=== PATIENT | female | born 1950 | race Caucasian/White ===

== ENCOUNTER 2018-07-22 11:07 | Outpatient (CLI) | payer MEDICARE ==
[~2018-07-22 11:07] MED LIST: ISOVUE-370 76%-LOCM 1 ML ONE
--- NOTE | 2018-07-22 15:12 | CT ---
CT ABDOMEN AND PELVIS WITH IV AND ORAL CONTRAST: HISTORY: Right lower quadrant pain. FINDINGS: No comparison. Mild scarring at the lung bases. Gallbladder is absent with associated distention of the biliary system. Small cysts within the liver. A heterogeneous and enhancing well circumscribed left adrenal mass measures up to 3.0 x 2[address] diameters. Tiny cysts of the kidneys. Postoperative changes right lower quadrant anterior abdomi nal wall. Scattered diverticula arise from the colon without adjacent inflammation. Pelvis is parti ally obscured by right hip prosthesis with spray artifact. Postoperative changes lumbar spine. IMPRESSION: 1. No inflammatory process or other cause for abdominal pain is apparent. 2. Left adrenal mass is well circumscribed and measures up to 3.0 cm. Because of its size, further evaluation is warranted. PET exam is not approved by Medicare for an adrenal mass in this case. Sin ce the main concern for an adrenal mass would be a metastatic focus from lung cancer, please consider CT of the chest to evaluate for a lung mass that could be the source of a metastasis to the adrenal gland. At the time of that exam, please perform CT abdomen noncontrast, then a CT chest with contrast to radha luate the adrenal gland without IV contrast enhancement, and then to fully evaluate the chest. 3. Diverticulosis. No evidence of diverticulitis. POS: [facility]
== END 2018-07-22 11:08 | disposition home or self-care (01) ==
LOC: BICCT 11:07
PROVIDERS: ATTEND Family Medicine
DX: R10.31 Right lower quadrant pain (principal); E27.8 Other specified disorders of adrenal gland; R91.8 Other nonspecific abnormal finding of lung field; K57.90 Diverticulosis of intestine, part unspecified, without perforation or abscess without bleeding
CPT/HCPCS: 74177; 82565; Q9966

== ENCOUNTER 2018-08-04 14:32 | Outpatient (CLI) | payer MEDICARE ==
[~2018-08-04 14:32] MED LIST changes: -ISOVUE-370 76%-LOCM 1 ML ONE; +Iopamidol 370 76% 100 ML VIAL ONE
--- NOTE | 2018-08-04 16:17 | CT ---
CT CHEST WITH CONTRAST: HISTORY: Adrenal mass seen on prior CT. Evaluate for evidence for metastatic disease from the chest. COMPARISON: None. TECHNIQUE: Multiple contiguous axial images were obtained in a CT of the chest with contrast. Sagittal and erika nal reformats were performed. FINDINGS: No pulmonary masses or nodules are seen in the lungs. No pneumothorax or pleural effusion is seen. No focal infiltrates are seen in the lungs. The heart is normal in size without focal cardiac abnormality. No hilar or mediastinal lymphadenopat hy is seen. Degenerative changes are seen in the spine. The visualized chest wall soft tissues are unremarkable. Please see dedicated abdominal CT for findings below the diaphragm. IMPRESSION: No evidence of significant intrathoracic abnormality. POS: [facility]
--- NOTE | 2018-08-04 16:21 | CT ---
CT ABDOMEN WITHOUT CONTRAST: HISTORY: Adrenal mass seen on prior CT. Please evaluate further. COMPARISON: 07/22/2018 TECHNIQUE: Multiple contiguous axial images were obtained in a CT of the abdomen without contrast. Coronal refo rmats were performed. FINDINGS: There is a 2.6 cm mass in the left adrenal gland with a mean Hounsfield unit value of 45 on this nonc ontrast examination. Nonenhancing hypodensities in the liver likely represent cysts. The gallbladde r has been removed. The right kidney, right adrenal gland, left kidney, spleen, and pancreas are unr emarkable, although evaluation is limited on this noncontrast examination. The visualized large and small bowel are unremarkable. No abdominal adenopathy is seen. There is a small hiatal hernia. Degenerative changes and post surgical changes are seen in the spine. Please see dedicated chest CT for findings above the diaphragm. The patient has wire sutures in the right upper quadrant of the ab domen, likely from prior open cholecystectomy. IMPRESSION: 1. Nonspecific left adrenal mass. This could represent a lipid-poor adrenal adenoma or metastatic d isease. An adrenal mass protocol CT of the abdomen should have been performed to completely characte rize this mass and evaluate for washout. 2. Hiatal hernia. 3. Hepatic cysts. POS: [facility]
== END 2018-08-04 14:33 | disposition home or self-care (01) ==
LOC: BICCT 14:32
PROVIDERS: ATTEND Family Medicine
DX: E27.9 Disorder of adrenal gland, unspecified (principal); K44.9 Diaphragmatic hernia without obstruction or gangrene; K76.89 Other specified diseases of liver
CPT/HCPCS: 71260; 74150; Q9967

== ENCOUNTER 2019-02-07 11:28 | Outpatient (CLI) | payer MEDICARE ==
--- NOTE | 2019-02-07 14:10 | CT ---
Exam: ABDOMEN CT WITH AND WITHOUT CONTRAST: HISTORY: Follow-up adrenal mass. COMPARISON: 08/04/2018. TECHNIQUE: Abdomen CT is performed with and without IV contrast following adrenal mass protocol. FINDINGS: Dependent atelectatic changes in the lung bases. Normal heart size. No significant pericardial fluid. 1 cm hypodensity in the left hepatic lobe, too small to characterize. 2.0 x 1.4 cm hypodensity in the left hepatic lobe with an attenuation coefficient of 10 Hounsfield units, compatible with a cyst. No enhancing masses in the liver, spleen, pancreas or right adrenal gland. Symmetric enhancement the kidneys. No obstructive uropathy. Subcentimeter hypodensities in the left and right renal cortex are too small to characterize. No mesenteric mass, lymphadenopathy, free air or free fluid. Limited evaluation of the alimentary canal by the lack of contrast. No evidence of bowel obstruction. No lytic or blastic lesions in the visualized osseous structures. Lumbar fusion hardware is noted Left adrenal gland: Noncontrast attenuation coefficient of 36.8 Hounsfield units, arterial phase imaging attenuation coef ficient of 0.8 Hounsfield units, delayed imaging attenuation coefficient of 60.6 Hounsfield units.. Absolute washout is 20.7%. Findings are indeterminate. Absolute washout is 9%. Findings are indeterminate. IMPRESSION: 1. Indeterminate left adrenal lesion. 3 month follow-up CT is recommended. Conversely, a follow-up [facility] MRI can be performed in 3 months. Transcribed Date/Time: 02/07/2019 2:47 PM
== END 2019-02-07 11:29 | disposition home or self-care (01) ==
LOC: BICCT 11:28
PROVIDERS: ATTEND Urology
DX: E27.9 Disorder of adrenal gland, unspecified (principal)
CPT/HCPCS: 74170; 82565

== ENCOUNTER 2019-05-13 09:07 | Outpatient (CLI) | payer MEDICARE ==
[2019-05-13] MEDS ORDERED: Magnevist 469MG/ML 20 ML VIAL ONE (11:56)
--- NOTE | 2019-05-13 12:23 | MRI ---
MRI OF THE ABDOMEN WITH AND WITHOUT IV CONTRAST: INDICATION: Left adrenal mass. COMPARISON: Prior CT of the abdomen with and without contrast dated 02/07/[address] of the abdomen d ated 08/04/2018. TECHNIQUE: Multiplanar, multisequence MR images were obtained of the abdomen with and without contrast. The pat ient received 20 cc of MultiHance. FINDINGS: Corresponding to the patient's known left adrenal mass is a predominantly moderate T2 hyperintense, h eterogeneous but predominantly hypointense T1 signal mass lesion within the left adrenal gland. The lesion measures 3.2 x 2.4 cm. The lesion demonstrates some heterogeneous but predominantly low signa l intensity on the in and out of phase images. On the fat saturation images, there is near complete loss of internal signal with a mild peripheral hyperintense rim. There is heterogeneous and progress junior enhancement of the lesion with the postcontrast series. A small persistent focus of intralesiona l macroscopic fat remains on image 4012 of series 9. This is also seen on the CT evaluation performe d earlier on 02/07/2019. There are multiple hepatic cysts present. The right adrenal gland, pancreas, and spleen appear withi n normal limits. No free fluid is evident. No enlarged lymph node is demonstrated. There is modera te intrahepatic and extrahepatic biliary ductal dilatation likely related to patient's post cholecyst ectomy state. Bone marrow signal intensity appears within normal limits. There are small bilateral renal cysts. IMPRESSION: 1. The left adrenal mass lesion contains macroscopic fat and internal loss of signal with fat satura tion is consistent with a left adrenal myelolipoma. 2. Hepatic and renal cysts. 3. Cholecystectomy. POS: [facility]
== END 2019-05-13 09:08 | disposition home or self-care (01) ==
LOC: BICMRI 09:07
PROVIDERS: ATTEND Urology
DX: E27.8 Other specified disorders of adrenal gland (principal); K76.89 Other specified diseases of liver; N28.1 Cyst of kidney, acquired; Z90.49 Acquired absence of other specified parts of digestive tract
CPT/HCPCS: 74183; 82565; A9579

== ENCOUNTER 2019-06-24 13:25 | Outpatient (CLI) | payer MEDICARE ==
--- NOTE | 2019-06-24 14:20 | RAD ---
Lumbar spine 4 views HISTORY: Low back pain. FINDINGS: There are 5 lumbar type vertebrae. Prominent leftward convex rotatory scoliotic curvature o n the frontal view. Bilateral pedicle screws and vertical rods at the L4-5-S1 levels. No lucency around the hardware. Metallic markers associated with interbody fusion material at the L4-5 level wit hin the confines of the disc space. Other pedicles are intact. Vertebral body heights are maintained. Disc space narrowing and discogenic endplate changes most pron ounced at the L2-3 level. Gas disc phenomenon at the T12-L1, L1-2, and L2-3 levels. There is minimal degenerative retrolisthesis at the L2-3 level that does not change upon flexion or e xtension. The L3-4 level, there is disc space narrowing. 0.8 cm spondylolisthesis on the neutral view increases to 0.9 cm upon flexion and reduces to 0.7 cm upon extension. IMPRESSION: Postoperative changes and prominent degenerative changes of the lumbar spine as detailed above, including mild translational motion at the spondylolisthesis at the L3-4 level.
--- NOTE | 2019-06-24 15:43 | MRI ---
MRI Lumbar Spine WO Con History: M 47.816 lumbar spondylosis Comparison: Lumbar spine radiographs same day Findings: The aortic contour is nonaneurysmal. No retroperitoneal periaortic adenopathy. No hydronephrosis. Abnormal mass left adrenal gland. Conus medullaris terminates at the superior endplate of L2. No marrow infiltrative process. Posterior spinal fusion hardware L4-S1 with laminectomy change. Levels are as follows: L1/L2: Moderate degenerative disc space height loss posteriorly. Broad-based posterior disc bulge. Mo derate bilateral neural foraminal narrowing. L2/L3: Moderate degenerative disc space height loss. Circumferential disc bulge greatest in the left lateral recess and subforaminal zone. Spinal canal is narrowed to approximately 8 mm. Moderate hypertrophic facet arthropathy. Moderate to severe left and moderate right neural foraminal narrowing with abutment of the left exiting nerve root. L3/L4: Broad-based posterior disc osteophyte complex. Moderate hypertrophic facet arthropathy. Facet arthropathy primarily continues to be a moderate to severe bilateral neural foraminal narrowing with abutment of the exiting nerve roots. Spinal canal measures approximately 7 mm. L4/L5: Prior sternotomy change. No neural foraminal or spinal canal narrowing. L5/S1: Complete degenerative disc space height loss. Circumferential osteophyte causes moderate bilat eral neural foraminal narrowing with abutment of the exiting and traversing nerve roots. Impression: 1. Multiple spondylosis as described with the root abutment. 2. Asymmetric atrophy of the right psoas muscle likely neurogenic in nature. 3. Symmetric bilateral posterior paraspinal muscle atrophy at L3-L5.
== END 2019-06-24 13:26 | disposition home or self-care (01) ==
LOC: BICMRI 13:25
PROVIDERS: ATTEND Nurse Practitioner Family
DX: M47.816 Spondylosis without myelopathy or radiculopathy, lumbar region (principal); M43.16 Spondylolisthesis, lumbar region; G12.9 Spinal muscular atrophy, unspecified
CPT/HCPCS: 72110; 72148

== ENCOUNTER 2019-07-27 11:11 | Outpatient (CLI) | payer MEDICARE ==
--- NOTE | 2019-08-16 14:19 | MMO ---
Bilateral MAMMO Bilat Screen [facility]. CLINICAL HISTORY: Patient is 69 years old and is seen for screening. VIEWS: The views performed were: bilateral craniocaudal with tomosynthesis and bilateral mediolateral oblique with tomosynthesis. FILMS COMPARED: The present examination has been compared to prior imaging studies performed at [facility] on 04/05/2014, 04/18/2015, 04/21/2016 and 04/23/2017. This study has been interpreted with the assistance of computer-aided detection. MAMMOGRAM FINDINGS: There are scattered fibroglandular densities. There are stable benign appearing calcifications seen in both breasts. There are no suspicious masses, suspicious calcifications, or new areas of architectural distortion. IMPRESSION: THERE IS NO MAMMOGRAPHIC EVIDENCE OF MALIGNANCY. A ROUTINE FOLLOW-UP MAMMOGRAM IN 1 YEAR IS RECOMMENDED. THE RESULTS OF THIS EXAM WERE SENT TO THE PATIENT. ACR BI-RADS Category 2 - Benign finding MAMMOGRAPHY NOTE: 1. A negative mammogram report should not delay a biopsy if a dominant of clinically suspicious mass is present. 2. Approximately 10% to 15% of breast cancers are not detected by mammography. 3. Adenosis and dense breasts may obscure an underlying neoplasm. Reported by: JEFF PERDUE MD Electonically Signed: [id number]
== END 2019-07-27 11:12 | disposition home or self-care (01) ==
LOC: BICMAMMO 11:11
PROVIDERS: ATTEND Family Medicine
DX: Z12.31 Encounter for screening mammogram for malignant neoplasm of breast (principal)
CPT/HCPCS: 77063; 77067

== ENCOUNTER 2019-09-16 09:53 | Outpatient (CLI) | payer MEDICARE ==
--- NOTE | 2019-09-16 13:56 | MRI ---
MRI BRAIN AND ORBITS WITH AND WITHOUT CONTRAST: DATE: 09/16/2019. 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 TECHNIQUE: The echo vascular technologist note: spoke to Dr. Barnes's office and Erin said to do routine orbit exam. The radiologist was not consulted prior to the exam for protocol. MRI brain and orbits protocol was performed, pre- and post-IV injection of 19 mL of MultiHance Gadoli nium-based contrast agent. Dr. Yeager called Dr. Barnes's office, and is awaiting Dr. Barnes's return phone call. FINDINGS: There are a few scattered punctate foci of T2 hyperintensity in the bilateral cerebral white matter, consistent with very mild chronic ischemic white matter changes, less than typically seen for this ag e group. There is diffuse age-appropriate brain parenchymal volume loss of the cerebrum. There is a greater degree of parenchymal volume loss of the bilateral cerebellar hemispheres. No restricted di ffusion to indicate any acute infarction. There is no evidence of infarction of any age. No obstruc tive hydrocephalus, mass effect, midline shift, extraaxial fluid collection, mass, or abnormal intraa xial enhancement. Bilateral cavernous sinuses are normal. No suprasellar mass or compression of the optic chiasm. No abnormal signal or abnormal enhancement of optic nerves. Orbital apices are clear. Extraocular musc les are symmetrical in size bilaterally. No infiltrate or mass within the orbits. No evidence of in traaxial acute hemorrhage. IMPRESSION: 1. Mild to moderate cerebellar atrophy. 2. Cerebrum is within normal limits for age. 3. Please note that for third nerve palsy, the general recommendation is a noncontrast MRA of the he ad (plus 3D CISS or 3D FIESTA equivalent), or contrast-enhanced CT angiogram of the head; in addition to standard brain MRI, in order to rule out a posterior communicating artery aneurysm impinging on t he oculomotor nerve. CODE T POS: ELISA
== END 2019-09-16 09:54 | disposition home or self-care (01) ==
LOC: BICMRI 09:53
DX: H49.02 Third [oculomotor] nerve palsy, left eye (principal); G31.9 Degenerative disease of nervous system, unspecified
CPT/HCPCS: 70553; 82565

== ENCOUNTER 2020-05-14 11:56 | Outpatient (CLI) | payer MEDICARE ==
[2020-05-14] MEDS ORDERED: Magnevist 469MG/ML 20 ML VIAL ONE (12:34)
[2020-05-14 13:05] LABS: Estimated GFR-MDRD - POC Greater than 90
--- NOTE | 2020-05-14 15:32 | MRI ---
MRI OF THE ABDOMEN WITHOUT AND WITH CONTRAST: COMPARISON: MRI of 05/13/2019, CT abdomen 02/07/2019, 07/22/2018. HISTORY: Left adrenal mass seen on prior imaging. Followup exam. TECHNIQUE: Multiplanar, multisequence MR images were obtained of the abdomen without and with IV contrast. FINDINGS: The gallbladder headache been removed. There is stable enlargement of the biliary tree. The common bile duct measures up to 11 mm in size. There is mild central intrahepatic biliary dilatation. This is likely a reservoir effect from prior cholecystectomy. There are multiple nonenhancing scattered foci of high T2 signal in the liver measuring up to 2.3 cm in size which represent cysts. No suspicious liver lesions are seen. There is a stable mass in the left adrenal gland. No suspicious liver lesions are seen. There is a stable mass in the left adrenal gland measuring 2.8 cm in size. Along the left aspect of the mass, there may be a few foci of macroscopic fat within the mass and there are areas of chemical shift artifact within the center of the mass suggesting that these are truly macroscopic fatty foci i n the mass. The majority of the mass is not fatty and demonstrates slow gradual enhancement. This m ass has not changed significantly compared to the prior examination and likely represents a myelolipo ma. There are multiple subcentimeter scattered nonenhancing foci of T2 signal in the kidneys measuring up to 8 mm in size which likely represents cysts. The right adrenal gland, spleen, and pancreas are un remarkable. No abdominal adenopathy is seen. Artifact from multiple wire sutures is seen along the anterior abdo chhaya wall. Hardware is seen in the lumbar spine. No suspicious marrow signal abnormality is presen t. IMPRESSION: 1. Stable left adrenal myelolipoma. 2. Hepatic cysts. 3. Renal cysts. 4. Stable enlargement of the biliary tree is likely a reservoir effect from prior cholecystectomy. POS: [facility]
== END 2020-05-14 11:57 | disposition home or self-care (01) ==
LOC: BICMRI 11:56
PROVIDERS: ATTEND Urology
DX: E27.8 Other specified disorders of adrenal gland (principal); N28.1 Cyst of kidney, acquired; K76.89 Other specified diseases of liver; D17.79 Benign lipomatous neoplasm of other sites; K83.8 Other specified diseases of biliary tract; Z90.49 Acquired absence of other specified parts of digestive tract
CPT/HCPCS: 74183; 82565; A9579

== ENCOUNTER 2020-07-30 11:32 | Outpatient (CLI) | payer MEDICARE ==
--- NOTE | 2020-07-30 12:47 | MMO ---
Bilateral MAMMO Bilat Screen [facility]. CLINICAL HISTORY: Patient is 70 years old and is seen for screening. The patient has no family history of breast cancer. The patient has no personal history of cancer. VIEWS: The views performed were: bilateral craniocaudal with tomosynthesis and bilateral mediolateral oblique with tomosynthesis. FILMS COMPARED: The present examination has been compared to prior imaging studies performed at [facility] on 04/18/2015, 04/21/2016 and 04/23/2017, and at [facility] on 07/27/2019. This study has been interpreted with the assistance of computer-aided detection. MAMMOGRAM FINDINGS: There are scattered fibroglandular densities. There are stable benign appearing calcifications seen in both breasts. There are no suspicious masses, suspicious calcifications, or new areas of architectural distortion. IMPRESSION: THERE IS NO MAMMOGRAPHIC EVIDENCE OF MALIGNANCY. A ROUTINE FOLLOW-UP MAMMOGRAM IN 1 YEAR IS RECOMMENDED. THE RESULTS OF THIS EXAM WERE SENT TO THE PATIENT. ACR BI-RADS Category 2 - Benign finding MAMMOGRAPHY NOTE: 1. A negative mammogram report should not delay a biopsy if a dominant of clinically suspicious mass is present. 2. Approximately 10% to 15% of breast cancers are not detected by mammography. 3. Adenosis and dense breasts may obscure an underlying neoplasm. Reported by: DELROY SU MD Electonically Signed: [id number]
== END 2020-07-30 11:33 | disposition home or self-care (01) ==
LOC: BICMAMMO 11:32
PROVIDERS: ATTEND Family Medicine
DX: Z12.31 Encounter for screening mammogram for malignant neoplasm of breast (principal)
CPT/HCPCS: 77063; 77067

== ENCOUNTER 2020-10-18 12:33 | Outpatient (CLI) | payer OTHER | END 2020-10-18 12:34 | disposition home or self-care (01) | LOC: DTY/OP 12:33 | PROVIDERS: ATTEND Family Medicine | DX: Z68.33 Body mass index [BMI] 33.0-33.9, adult (principal) | CPT/HCPCS: 97802 ==

== ENCOUNTER 2021-08-05 09:28 | Outpatient (CLI) | payer MEDICARE | END 2021-08-05 09:29 | disposition home or self-care (01) | LOC: BICMAMMO 09:28 | PROVIDERS: ATTEND Family Medicine | DX: Z12.31 Encounter for screening mammogram for malignant neoplasm of breast (principal) | CPT/HCPCS: 77063; 77067 ==

== ENCOUNTER 2021-10-30 17:03 | Outpatient (CLI) | payer MEDICARE | END 2021-10-30 17:04 | disposition home or self-care (01) | LOC: SCSRAD 17:03 | PROVIDERS: ATTEND Family Medicine | DX: T17.908D Unspecified foreign body in respiratory tract, part unspecified causing other injury, subsequent encounter (principal); R19.8 Other specified symptoms and signs involving the digestive system and abdomen | CPT/HCPCS: 71046 ==

== ENCOUNTER 2022-05-08 14:29 | Outpatient (CLI) | payer MEDICARE | END 2022-05-08 14:30 | disposition home or self-care (01) | LOC: BICMAMMO 14:29 | PROVIDERS: ATTEND Family Medicine | DX: Z13.820 Encounter for screening for osteoporosis (principal); Z78.0 Asymptomatic menopausal state | CPT/HCPCS: 77080 ==

== ENCOUNTER 2022-08-13 11:45 | Outpatient (CLI) | payer MEDICARE | END 2022-08-13 11:46 | disposition home or self-care (01) | LOC: BICMAMMO 11:45 | PROVIDERS: ATTEND Family Medicine | DX: Z12.31 Encounter for screening mammogram for malignant neoplasm of breast (principal) | CPT/HCPCS: 77063; 77067 ==